=== PATIENT | male | born 1985 | race Caucasian/White ===

== ENCOUNTER → 2020-03-29 10:21 | Outpatient (BNVA) | payer OTHER, SELFPAY | PROVIDERS: Family Provider Electrodiagnostic Medicine; PCP Electrodiagnostic Medicine; Visit Provider Internal Medicine | DX: J06.9 Acute upper respiratory infection, unspecified (principal) | CPT/HCPCS: 87635 ==

== ENCOUNTER 2021-08-29 19:32 | Emergency (ER) | payer OTHER, SELFPAY ==
[2021-08-29] VITALS (26 sets, daily range): BP systolic 137–157; BP diastolic 79–98; PULSE 71–94; RESP 14–31; TEMP 36.9; O2SAT 95–100
[2021-08-29 20:41] LABS: Add Urine Microscopic? NO; Charge for UA Resulting for Rev
[2021-08-29 20:49] LABS: Bilirubin Urine Neg (Negative); Blood Urine Neg (Negative); Glucose Urine UA Norm (Normal); Ketones Urine Negative (Negative); Leukocyte Esterase Urine Negative (Negative); Nitrate Urine Negative (Negative); Protein Urine Neg (Negative); Sulfosalicylic Acid Urine Negative (Negative); Urine Appearance Clear (CLEAR); Urine Color Yellow (Yellow); Urobilinogen Urine Norm (Negative); pH Urine 8 (5-7)
--- NOTE | 2021-08-29 21:53 | CTR_ITS ---
PROCEDURE INFORMATION: Exam: CT Abdomen And Pelvis With Contrast Exam date and time: 08/29/2021 9:53 PM Age: 36 years old Clinical indication: Abdominal pain; Localized; Right lower quadrant (rlq); Patient HX: Rlq pain with nausea. ; Additional info: Eval for pathologies in the rlq TECHNIQUE: Imaging protocol: Computed tomography of the abdomen and pelvis with contrast. Radiation optimization: All CT scans at this facility use at least one of these dose optimization techniques: automated exposure control; mA and/or kV adjustment per patient size (includes targeted exams where dose is matched to clinical indication); or iterative reconstruction. Contrast material: OMNI 300; Contrast volume: 95 ml; Contrast route: INTRAVENOUS (IV); COMPARISON: No relevant prior studies available. RADIATION DOSE METRICS: Total DLP (mGy-cm): 1052.9 FINDINGS: Lungs: 5 mm left lower lobe pulmonary nodule. Liver: 2.4 cm right lobe hepatic lesion with peripheral nodular enhancement consistent with a hemangioma. Gallbladder and bile ducts: No wall thickening, pericholecystic fluid or stones. Pancreas: Normal. No ductal dilation. Spleen: Normal. No splenomegaly. Adrenal glands: Normal. No mass. Kidneys and ureters: 2 mm mildly obstructing right distal ureteral stone. Stomach and bowel: Unremarkable. No obstruction. No mucosal thickening. Appendix: No evidence of appendicitis. Intraperitoneal space: Unremarkable. No free air. No significant fluid collection. Vasculature: Unremarkable. No abdominal aortic aneurysm. Lymph nodes: Unremarkable. No enlarged lymph nodes. Urinary bladder: Unremarkable as visualized. Reproductive: Unremarkable as visualized. Bones/joints: Unremarkable. No acute fracture. Soft tissues: Unremarkable. CT/CT abdomen pelvis w con* [id number] IMPRESSION: 1. 2 mm mildly obstructing right distal ureteral stone. 2. 5 mm left lower lobe pulmonary nodule. For patients at low risk (minimal or absent history of smoking and of other known risk factors), no routine follow-up is indicated. For patients at high risk (history of smoking or of other known risk factors), consider optional CT Chest at 12 months. (Reference: Dunia) 3. 2.4 cm right lobe hepatic lesion with peripheral nodular enhancement consistent with a hemangioma. REFERENCES: Dunia Perez et al. Guidelines for Management of Incidental Pulmonary Nodules Detected on CT Images: From the Fleischner Society 2017. Radiology. 2017;284(1):228-243.
--- NOTE | 2021-08-29 21:56 | ED_ITS ---
Documented by User: Afshan Zabala MD 09/01/21 13:03 HPI - General Adult General: Chief complaint: Abdominal Pain Stated complaint: lower abd pain goes to the back Time Seen by Provider: 08/29/21 21:42 History of Present Illness: Patient is a 36-year-old male with no segment past medical history presents emergency room with complaints of right lower quadrant abdominal pain radiating to the right flank since 6:45 PM. Patient was at home resting when this all started. Since, patient has had intermittent severe right lower quadrant pain. Patient denies any nausea/vomiting, fever/chills, diarrhea, melena hematochezia. Patient has no testicular complaints including testicular pain, swelling, or trauma. Patient has no prior history of kidney stone. No prior abdominal surgeries. Patient has no other associated symptoms including chest pain, shortness breath, palpitation, lightheadedness, cough, hemoptysis, or nasal congestion Onset: 6:45pm today Duration:3 hrs Location:home Severity:moderate Associated symptoms: Deny chest pain, dyspnea, nausea, rash, palpitations or vomiting Review of Systems Const: Denies: fever(s) or chills Eyes: Denies: change in vision ENMT: Denies: mouth pain Card: Denies: chest pain or palpitations Resp: Denies: dyspnea or non-productive cough GI: Reports: abdominal pain (+RLQ and R flank abd pain); Denies: nausea, vomiting or diarrhea : Denies: dysuria Musc: Denies: extremity pain Skin/Breast: Denies: rash or new lesions Neuro: Denies: weakness in extremities Psych: Reports: other (Normal mood) Darshan/Lymph: Denies: easy bruising PFSH ED PFSH: Family History (Updated 08/29/21 @ 21:57 by Afshan Zabala MD) Denies family history of CAD (coronary artery disease) Anesthesia complication Social History (Updated 08/29/21 @ 21:56 by Afshan Zabala MD) Smoking and tobacco status: never smoked Alcohol intake: never Physical Exam Const: COMMON NORMALS: alert HENMT: COMMON NORMALS: atraumatic HEAD & SCALP: atraumatic MOUTH: moist mucous membranes not abnormal Eye: COMMON NORMALS: EOMs intact bilaterally and conjunctivae normal CONJUNCTIVA: Yes conjunctivae normal Neck/C-Spine: COMMON NORMALS: full ROM and supple Resp: COMMON NORMALS: normal respiratory effort and clear to auscultation bilaterally AUSCULTATION: clear to auscultation bilaterally Cardio: COMMON NORMALS: regular rate RATE: regular rate GI: COMMON NORMALS: Soft to palpation PALPATION: Yes Soft to palpation OTHER: +moderate RLQ focal TTP. NO guarding rebound, guarding, rigidity. +mild R CVA tenderness to percussion. Neg Lockett/Neg McBurney's point tenderness, no suprabupic tenderness to palpation. : OTHER: Normal external genitalia, Testicles non-tender b/l, no erythema. +cresmestric reflex b/l Extremity: COMMON NORMALS: full ROM Neuro: SENSORIUM/ORIENTATION: Yes alert MOTOR EXAM: No Abnormal motor stren gth present and Other motor observations present (no focal motor deficits) Psych: COMMON NORMALS: speech normal SPEECH: Yes normal speech MOOD & AFFECT: Yes euthymic mood Course Vital Signs: Vital signs: Vital Signs Temperature 98.5 F 08/30/21 00:25 Pulse Rate 65 08/30/21 00:25 Respiratory Rate 15 08/30/21 00:25 Blood Pressure 137/82 08/30/21 00:25 Pulse Oximetry 99 08/30/21 00:25 MDM - General Adult Medical Decision Making 36-year-old male w/ no PMH history presenting to ED with sudden onset of right lower quadrant dull pain with radiation to the right flank. On arrival, patient is afebrile, in moderate distress w. moderate tenderness palpation right lower quadrant with radiation to the right flank. No prior hx of kidney stones. Workup: CBC, CMP, Lipase, CT abd+pelvis Intervention: IVF, dilaudid and serial reassessment CT abdomen pelvis showed 2 mm right obstructive distal ureteral stone. Patient received 2 L of fluid, Toradol, dilaudid and fentanyl with improvement of symptoms. Noted to have white count of 18.8. However UA is negative for any signs of UTI. No suspicion for infected kidney stone. I have given patient follow up with our social work case manager to be seen by our outpatient Urology for kidney stone. Patient aware of a call from our social work case manager to schedule for appointment(s) and verbalizes understanding of the importance of following up. Rx tyleonl PRN pain and zofran PRN nausea/vomiting Disposition: Discharge. Patient counseled regarding diagnostic impression, treatment plan. Patient given ED strict return precautions to return for continuation, worsening, or development of new symptoms. Instructed to f/u w/ Dr. Sequeira regarding symptoms today. Patient verbalized understanding. above. Pt remained stable. outpt fu. Lab Data : 08/29/21 21:50 08/29/21 21:50 Radiology Impressions Abdomen/Pelvis CT 08/29/21 21:53 IMPRESSION: 1. 2 mm mildly obstructing right distal ureteral stone. 2. 5 mm left lower lobe pulmonary nodule. For patients at low risk (minimal or absent history of smoking and of other known risk factors), no routine follow-up is indicated. For patients at high risk (history of smoking or of other known risk factors), consider optional CT Chest at 12 months. (Reference: Dunia) 3. 2.4 cm right lobe hepatic lesion with peripheral nodular enhancement consistent with a hemangioma. REFERENCES: Dunia Perez, et al. Guidelines for Management of Incidental Pulmonary Nodules Detected on CT Images: From the Fleischner Society 2017. Radiology. 2017;284(1):228-243. Laboratory Results WBC 18.8 10^3/uL (4.0-10.0) H 08/29/21 21:50 RBC 4.81 10^6/uL (4.1-5.3) 08/29/21 21:50 Hgb 14.7 g/dL (11.7-16.6) 08/29/21 21:50 Hct 41.9 % (42.0-52.0) L 08/29/21 21:50 MCV 87.1 fl (80-94) 08/29/21 21:50 MCH 30.6 pg (28.0-34.0) 08/29/21 21:50 MCHC 35.1 g/dL (30.0-36.0) 08/29/21 21:50 RDW 12.0 % (12.1-15.1) L 08/29/21 21:50 Plt Count 315 10^3/cmm (130-400) 08/29/21 21:50 MPV 9.5 fL (7.4-10.4) 08/29/21 21:50 Neut % (Auto) 85.3 % 08/29/21 21:50 Lymph % (Auto) 9.0 % 08/29/21 21:50 Cole % (Auto) 4.7 % 08/29/21 21:50 Eos % (Auto) 0.3 % 08/29/21 21:50 Baso % (Auto) 0.3 % 08/29/21 21:50 Neut # (Auto) 15.99 10^3/uL (1.8-7.7) H 08/29/21 21:50 Lymph # (Auto) 1.7 10^3/uL (0.8-4.8) 08/29/21 21:50 Cole # (Auto) 0.9 10^3/uL (0.2-0.9) 08/29/21 21:50 Eos # (Auto) 0.1 10^3/uL (0.0-0.8) 08/29/21 21:50 Baso # (Auto) 0.1 10^3/uL (0.0-0.1) 08/29/21 21:50 Nucleated RBC % (auto) 0 % 08/29/21 21:50 Nucleated RBCs # 0.0 /100WBC 08/29/21 21:50 Sodium 138 mmol/L (136-145) 08/29/21 21:50 Potassium 4.4 mmol/L (3.5-5.1) 08/29/21 21:50 Chloride 101 mmol/L (98-107) 08/29/21 21:50 Carbon Dioxide 24 mmol/L (22-29) 08/29/21 21:50 Anion Gap 17.4 (5-19) 08/29/21 21:50 BUN 16 mg/dL (6-20) 08/29/21 21:50 Creatinine 1.1 mg/dL (0.7-1.2) 08/29/21 21:50 GFR Calculation 74.9 mL/min (90-130) L 08/29/21 21:50 Glucose 143 mg/dL (65-115) H 08/29/21 21:50 Calculated Osmolality 290 mOsm/kg (285-295) 08/29/21 21:50 Calcium 9.1 mg/dL (8.5-10.5) 08/29/21 21:50 Total Bilirubin 0.8 mg/dL (0.15-1.2) 08/29/21 21:50 AST 29 U/L (0-40) 08/29/21 21:50 ALT 49 U/L (0-41) H 08/29/21 21:50 Alkaline Phosphatase 55 IU/L (40-130) 08/29/21 21:50 Total Protein 7.6 g/dL (6.6-8.7) 08/29/21 21:50 Albumin 4.7 g/dL (3.5-5.2) 08/29/21 21:50 Globulin 2.9 g/dL (1.3-4.6) 08/29/21 21:50 Lipase 105 U/L (13-60) H 08/29/21 21:50 Urine Color Yellow (Yellow) 08/29/21 20:16 Urine Appearance Clear (CLEAR) 08/29/21 20:16 Urine pH 8 (5-7) H 08/29/21 20:16 Ur Specific [place] 1.010 (1.005-1.030) 08/29/21 20:16 Urine Protein Neg (Negative) 08/29/21 20:16 Urine Glucose (UA) Norm (Normal) 08/29/21 20:16 Urine Ketones Negative (Negative) 08/29/21 20:16 Urine Blood Neg (Negative) 08/29/21 20:16 Urine Nitrate Negative (Negative) 08/29/21 20:16 Urine Bilirubin Neg (Negative) 08/29/21 20:16 Prot Sulfosalicylic Acd Negative (Negative) 08/29/21 20:16 Urine Urobilinogen Norm mg/dL (Negative) 08/29/21 20:16 Ur Leukocyte Esterase Negative (Negative) 08/29/21 20:16 Imaging Data Other Imaging: Radiologist's impression: [address] [address] [address] Scan Report Signed Patient: Jesus Alberto Pierre Unit #: [id number] : 1985 Age/Sex: 36 / M ADM Date: 08/29/21 Loc: ER Room/Bed: Attending Dr: Ordering Provider/Ordering MD: Afshan Zabala MD Date of Service: 08/29/21 Procedure(s): CT abdomen pelvis w con* [id number] Accession Number(s): [id number] Report Number: [id number] PROCEDURE INFORMATION: Exam: CT Abdomen And Pelvis With Contrast Exam date and time: 08/29/2021 9:53 PM Age: 36 years old Clinical indication: Abdominal pain; Localized; Right lower quadrant (rlq); Patient HX: Rlq pain with nausea. ; Additional info: Eval for pathologies in the rlq TECHNIQUE: Imaging protocol: Computed tomography of the abdomen and pelvis with contrast. Radiation optimization: All CT scans at this facility use at least one of these dose optimization techniques: automated exposure control; mA and/or kV adjustment per patient size (includes targeted exams where dose is matched to clinical indication); or iterative reconstruction. Contrast material: OMNI 300; Contrast volume: 95 ml; Contrast route: INTRAVENOUS (IV);? COMPARISON: No relevant prior studies available. RADIATION DOSE METRICS: Total DLP (mGy-cm): 1052.9 FINDINGS: Lungs: 5 mm left lower lobe pulmonary nodule. Liver: 2.4 cm right lobe hepatic lesion with peripheral nodular enhancement consistent with a hemangioma. Gallbladder and bile ducts: No wall thickening, pericholecystic fluid or stones. Pancreas: Normal. No ductal dilation. Spleen: Normal. No splenomegaly. Adrenal glands: Normal. No mass. Kidneys and ureters: 2 mm mildly obstructing right distal ureteral stone. Stomach and bowel: Unremarkable. No obstruction. No mucosal thickening. Appendix: No evidence of appendicitis. Intraperitoneal space: Unremarkable. No free air. No significant fluid collection. Vasculature: Unremarkable. No abdominal aortic aneurysm. Lymph nodes: Unremarkable. No enlarged lymph nodes. Urinary bladder: Unremarkable as visualized. Reproductive: Unremarkable as visualized. Bones/joints: Unremarkable. No acute fracture. Soft tissues: Unremarkable. CT/CT abdomen pelvis w con* [id number] IMPRESSION: 1. 2 mm mildly obstructing right distal ureteral stone. 2. 5 mm left lower lobe pulmonary nodule. For patients at low risk (minimal or absent history of smoking and of other known risk factors), no routine follow-up is indicated. For patients at high risk (history of smoking or of other known risk factors), consider optional CT Chest at 12 months. (Reference: Dunia) 3. 2.4 cm right lobe hepatic lesion with peripheral nodular enhancement consistent with a hemangioma. ? REFERENCES: Dunia Perez et al. Guidelines for Management of Incidental Pulmonary Nodules Detected on CT Images: From the Fleischner Society 2017. Radiology. 2017;284(1):228-243. ? Dictated By: Jesse Driscoll Signed By: Jesse Driscoll Signed Date/Time: 08/29/212237 DD/ 52 Discharge Plan Discharge Patient Disposition: Home Clinical Impression: Abdominal pain, Renal colic, Ureterolithiasis Condition: Stable Prescriptions: New Zofran 4 mg tablet 4 mg PO TID PRN (Reason: nausea and vomiting) 4 Days Qty: 12 0RF Percocet 7.5-325 mg tablet 1 tab PO Q6H PRN (Reason: pain) Qty: 10 0RF Discharge Orders: Discharge ED (Routine); Ordered 08/30/21 Ordered By: Sky Crowe Referrals: Marek Sequeira MD [Physician] - 1-3 days Alexis Chauhan DO [Primary Care Provider] - Discharge Diet: Advance as tolerated Discharge Activity: Increase activity as tolerated Patient Instructions: Abdominal Pain (ED), Ureteral Stones (ED) Activity Restrictions/Additional Instructions: Please follow-up with Dr. 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 Documented by User: Sky Crowe DO 08/30/21 02:02 HPI - General Adult General: Chief complaint: Abdominal Pain Stated complaint: lower abd pain goes to the back Time Seen by Provider: 08/29/21 21:42 PFSH ED PFSH: Family History (Updated 08/29/21 @ 21:57 by Afshan Zabala MD) Denies family history of CAD (coronary artery disease) Anesthesia complication Social History (Updated 08/29/21 @ 21:56 by Afshan Zabala MD) Smoking and tobacco status: never smoked Alcohol intake: never Course Vital Signs: Vital signs: Vital Signs Temperature 98.5 F 08/30/21 00:25 Pulse Rate 65 08/30/21 00:25 Respiratory Rate 15 08/30/21 00:25 Blood Pressure 137/82 08/30/21 00:25 Pulse Oximetry 99 08/30/21 00:25 MDM - General Adult Medical Decision Making 36-year-old male w/ no PMH history presenting to ED with sudden onset of right lower quadrant dull pain with radiation to the right flank. Arrival, patient is afebrile, in moderate distress patient has moderate tenderness palpation right lower quadrant with radiation to the right flank. No prior hx of kidney stones. Workup: CBC, CMP, Lipase, CT abd+pelvis Intervention: IVF, dilaudid and serial reassessment CT abdomen pelvis showed 2 mm right obstructive distal ureteral stone. Patient received 2 L of fluid, Toradol, dilaudid and fentanyl with improvement of symptoms. Noted to have white count of 18.8. However UA is negative for any signs of UTI. No suspicion for infected kidney stone. I have given patient follow up with our social work case manager to be seen by our outpatient Urology for kidney stone. Patient aware of a call from our social work case manager to schedule for appointment(s) and verbalizes understanding of the importance of following up. Rx tyleonl PRN pain and zofran PRN nausea/vomiting Disposition: Discharge. Patient counseled regarding diagnostic impression, treatment plan. Patient given ED strict return precautions to return for continuation, worsening, or development of new symptoms. Instructed to f/u w/ Dr. Sequeira regarding symptoms today. Patient verbalized understanding. above. Pt remained stable. outpt fu. Lab Data : 08/29/21 21:50 08/29/21 21:50 Radiology Impressions Abdomen/Pelvis CT 08/29/21 21:53 IMPRESSION: 1. 2 mm mildly obstructing right distal ureteral stone. 2. 5 mm left lower lobe pulmonary nodule. For patients at low risk (minimal or absent history of smoking and of other known risk factors), no routine follow-up is indicated. For patients at high risk (history of smoking or of other known risk factors), consider optional CT Chest at 12 months. (Reference: Dunia) 3. 2.4 cm right lobe hepatic lesion with peripheral nodular enhancement consistent with a hemangioma. REFERENCES: Dunia Perez, et al. Guidelines for Management of Incidental Pulmonary Nodules Detected on CT Images: From the Fleischner Society 2017. Radiology. 2017;284(1):228-243. Laboratory Results WBC 18.8 10^3/uL (4.0-10.0) H 08/29/21 21:50 RBC 4.81 10^6/uL (4.1-5.3) 08/29/21 21:50 Hgb 14.7 g/dL (11.7-16.6) 08/29/21 21:50 Hct 41.9 % (42.0-52.0) L 08/29/21 21:50 MCV 87.1 fl (80-94) 08/29/21 21:50 MCH 30.6 pg (28.0-34.0) 08/29/21 21:50 MCHC 35.1 g/dL (30.0-36.0) 08/29/21 21:50 RDW 12.0 % (12.1-15.1) L 08/29/21 21:50 Plt Count 315 10^3/cmm (130-400) 08/29/21 21:50 MPV 9.5 fL (7.4-10.4) 08/29/21 21:50 Neut % (Auto) 85.3 % 08/29/21 21:50 Lymph % (Auto) 9.0 % 08/29/21 21:50 Cole % (Auto) 4.7 % 08/29/21 21:50 Eos % (Auto) 0.3 % 08/29/21 21:50 Baso % (Auto) 0.3 % 08/29/21 21:50 Neut # (Auto) 15.99 10^3/uL (1.8-7.7) H 08/29/21 21:50 Lymph # (Auto) 1.7 10^3/uL (0.8-4.8) 08/29/21 21:50 Cole # (Auto) 0.9 10^3/uL (0.2-0.9) 08/29/21 21:50 Eos # (Auto) 0.1 10^3/uL (0.0-0.8) 08/29/21 21:50 Baso # (Auto) 0.1 10^3/uL (0.0-0.1) 08/29/21 21:50 Nucleated RBC % (auto) 0 % 08/29/21 21:50 Nucleated RBCs # 0.0 /100WBC 08/29/21 21:50 Sodium 138 mmol/L (136-145) 08/29/21 21:50 Potassium 4.4 mmol/L (3.5-5.1) 08/29/21 21:50 Chloride 101 mmol/L (98-107) 08/29/21 21:50 Carbon Dioxide 24 mmol/L (22-29) 08/29/21 21:50 Anion Gap 17.4 (5-19) 08/29/21 21:50 BUN 16 mg/dL (6-20) 08/29/21 21:50 Creatinine 1.1 mg/dL (0.7-1.2) 08/29/21 21:50 GFR Calculation 74.9 mL/min (90-130) L 08/29/21 21:50 Glucose 143 mg/dL (65-115) H 08/29/21 21:50 Calculated Osmolality 290 mOsm/kg (285-295) 08/29/21 21:50 Calcium 9.1 mg/dL (8.5-10.5) 08/29/21 21:50 Total Bilirubin 0.8 mg/dL (0.15-1.2) 08/29/21 21:50 AST 29 U/L (0-40) 08/29/21 21:50 ALT 49 U/L (0-41) H 08/29/21 21:50 Alkaline Phosphatase 55 IU/L (40-130) 08/29/21 21:50 Total Protein 7.6 g/dL (6.6-8.7) 08/29/21 21:50 Albumin 4.7 g/dL (3.5-5.2) 08/29/21 21:50 Globulin 2.9 g/dL (1.3-4.6) 08/29/21 21:50 Lipase 105 U/L (13-60) H 08/29/21 21:50 Urine Color Yellow (Yellow) 08/29/21 20:16 Urine Appearance Clear (CLEAR) 08/29/21 20:16 Urine pH 8 (5-7) H 08/29/21 20:16 Ur Specific [place] 1.010 (1.005-1.030) 08/29/21 20:16 Urine Protein Neg (Negative) 08/29/21 20:16 Urine Glucose (UA) Norm (Normal) 08/29/21 20:16 Urine Ketones Negative (Negative) 08/29/21 20:16 Urine Blood Neg (Negative) 08/29/21 20:16 Urine Nitrate Negative (Negative) 08/29/21 20:16 Urine Bilirubin Neg (Negative) 08/29/21 20:16 Prot Sulfosalicylic Acd Negative (Negative) 08/29/21 20:16 Urine Urobilinogen Norm mg/dL (Negative) 08/29/21 20:16 Ur Leukocyte Esterase Negative (Negative) 08/29/21 20:16 Discharge Plan Discharge Patient Disposition: Home Clinical Impression: Abdominal pain, Renal colic, Ureterolithiasis Condition: Stable Prescriptions: New Zofran 4 mg tablet 4 mg PO TID PRN (Reason: nausea and vomiting) 4 Days Qty: 12 0RF Percocet 7.5-325 mg tablet 1 tab PO Q6H PRN (Reason: pain) Qty: 10 0RF Discharge Orders: Discharge ED (Routine); Ordered 08/30/21 Ordered By: Sky Crowe Referrals: Marek Sequeira MD [Physician] - 1-3 days Alexis Chauhan DO [Primary Care Provider] - Discharge Diet: Advance as tolerated Discharge Activity: Increase activity as tolerated Patient Instructions: Abdominal Pain (ED), Ureteral Stones (ED) Activity Restrictions/Additional Instructions: Please follow-up with Dr. 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
--- NOTE | 2021-08-29 21:57 | PC.NURSE ---
pt stating he is having flank pain on the right side. states has never experienced anything like this before. denies any problems urinating.
[2021-08-29] MEDS: HYDROmorphone 1 mg/mL INJ 1 mL 0.5 MG IVP (22:00)
[2021-08-29] MEDS: sodium chloride 0.9% 1,000 ML 999 ML IV ×2 (22:06→23:00)
[2021-08-29 22:07] LABS: Basophils # 0.1 10^3/uL (0.0-0.1); Basophils % 0.3 %; Eosinophils # 0.1 10^3/uL (0.0-0.8); Eosinophils % 0.3 %; Hematocrit 41.9 % (42.0-52.0); Hemoglobin 14.7 g/dL (11.7-16.6); Lymphocytes # 1.7 10^3/uL (0.8-4.8); Mean Corpuscular HGB Conc 35.1 g/dL (30.0-36.0); Mean Corpuscular Hemoglobin 30.6 pg (28.0-34.0); Mean Corpuscular Volume 87.1 fl (80-94); Mean Platelet Volume 9.5 fL (7.4-10.4); Monocytes # 0.9 10^3/uL (0.2-0.9); Monocytes % 4.7 %; Neutrophils # 15.99 10^3/uL (1.8-7.7); Neutrophils % 85.3 %; Nucleated Red Blood Cells % 0 %; Platelet Count 315 10^3/cmm (130-400); Red Blood Count 4.81 10^6/uL (4.1-5.3); White Blood Count 18.8 10^3/uL (4.0-10.0)
[2021-08-29] MEDS: iohexol 300 mg/mL 100 mL Btl IV (22:17)
[2021-08-29 22:24] LABS: Alanine Aminotransferase 49 U/L (0-41); Albumin Level 4.7 g/dL (3.5-5.2); Alkaline Phosphatase 55 IU/L (40-130); Anion Gap 17.4 (5-19); Aspartate Amino Transferase 29 U/L (0-40); Blood Urea Nitrogen 16 mg/dL (6-20); Calcium 9.1 mg/dL (8.5-10.5); Carbon Dioxide 24 mmol/L (22-29); Chloride 101 mmol/L (98-107); Globulin 2.9 g/dL (1.3-4.6); Glomerular Filtration Rate 74.9 mL/min (90-130); Glucose 143 mg/dL (65-115); Lipase 105 U/L (13-60); Osmolality Calculated 290 mOsm/kg (285-295); Potassium 4.4 mmol/L (3.5-5.1); Sodium 138 mmol/L (136-145); Total Bilirubin 0.8 mg/dL (0.15-1.2); Total Protein 7.6 g/dL (6.6-8.7)
[2021-08-29] MEDS: fentaNYL 50 mcg/mL INJ 2mL IVP (22:45)
[2021-08-29] MEDS: ketorolac 30 mg/mL INJ IVP (22:46)
[2021-08-30] MEDS: oxyCODONE-APAP 5-325 mg Tablet 1 TAB PO (00:24)
[2021-08-30 00:25] VITALS: BP 137/82; PULSE 65; RESP 15; TEMP 36.9; O2SAT 99
--- NOTE | 2021-09-01 11:20 | DCPLANNER ---
Addendum entered by Margi Avery 09/05/21 13:32: Patient had a follow up appointment scheduled for 09.05.[address] Sequeira - patient did attend appointment. Original Note: sales engagement manager had message to schedule a follow up appointment for patient with Dr. Sequeira. sales engagement manager emailed patients information to Myron Olivo and Lennie at the office of Dr. Sequeira. Patients information will be printed and reviewed. Clinic will call patient with appointment information.
== END 2021-08-30 00:27 | disposition home or self-care (01) ==
PROVIDERS: Nurse Practitioner Family; Emergency Provider Emergency Medicine; PCP Electrodiagnostic Medicine
DX: N20.1 Calculus of ureter (principal); N23 Unspecified renal colic
CPT/HCPCS: 74177; 80053; 81003; 83690; 85025; 96361; 96374; 96375; 99284; J1170; J1885; J3010; J7030; Q9967

== ENCOUNTER 2021-09-02 08:49 | Emergency (ER) | payer OTHER, SELFPAY ==
[2021-09-02 09:29] VITALS: BP 149/89; PULSE 81; RESP 16; TEMP 36.9; O2SAT 99; BMI 23.1
[2021-09-02 10:42] VITALS: BP 155/107; PULSE 79; RESP 16; O2SAT 99
--- NOTE | 2021-09-02 10:43 | ED_ITS ---
HPI - Abdominal Pain General: Chief Complaint: Abdominal Pain Stated Complaint: Hasn't passed a kidneystone, no bowels for 5 days Time Seen by Provider: 09/02/21 10:32 Source: patient and family () Mode of arrival: ambulatory Limitations: no limitations History of Present Illness: Patient is a 36-year-old male who presents to ED today along with his for complaints of no bowel movement over the past 5 days. Patient was seen here recently and diagnosed with a 2 mm right distal ureter stone. Patient states he has been urinating normally. The pain to the right side of his back and lower abdomen has improved. He has been taking pain medications as directed. He states he was also later placed on flomax and ciprofloxacin as he apparently ran a low-grade fever. He has follow-up with Dr. Sequeira's office tomorrow. Patient states today he is having generalized abdominal discomfort that he states is secondary to constipation. He has tried treating with MiraLAX and magnesium citrate without much relief. No vomiting. He is passing flatulence. MD elicited complaint: abdominal pain Onset (ago): day(s) Pain Consistency: constant Location: Diffuse Severity: moderate Pain scale (0-10): 6 Radiation: none Migration to: no migration Exacerbating factors: nothing Relieving factors: nothing Associated Symptoms: Reports constipation; Denies chills, diarrhea, dysuria, fever(s), heartburn, hematochezia, hematuria, melena, nausea and vomiting Review of Systems Const: Denies: fever(s), chills, body aches, fatigue or malaise Card: Denies: chest pain Resp: Denies: dyspnea GI: Reports: abdominal pain and constipation; Denies: nausea, vomiting, heartburn, diarrhea, hematochezia or melena : Denies: flank pain, difficulty urinating, dysuria, urinary frequency, urinary urgency, urinary hesitancy, urinary incontinence or hematuria Musc: Denies: neck pain, back pain, extremity pain or joint pain Skin/Breast: Denies: rash Neuro: Denies: headache(s), numbness in extremities, weakness in extremities or sensory changes PFS ED PFSH: Family History Denies family history of CAD (coronary artery disease) Anesthesia complication Social History Smoking and tobacco status: never smoked Alcohol intake: never Physical Exam Const: COMMON NORMALS: no acute distress, average body habitus, patient oriented x3, no limitations, healthy appearing, alert and well nourished GENERAL APPEARANCE: cooperative Resp: COMMON NORMALS: normal respiratory effort Cardio: COMMON NORMALS: regular rate and regular rhythm RATE: regular rate RHYTHM: regular rhythm GI: COMMON NORMALS: Normal to inspection, nondistended, normoactive bowel sounds present, Soft to palpation, No hepatosplenomegaly present and no masses INSPECTION: Yes normal to inspection PALPATION: Yes Soft to palpation, Yes Tenderness to palpation present (GI) (mild diffusely-non surgical abdomen) and Yes No hepatosplenomegaly present : COMMON NORMALS: Yes no CVA tenderness BLADDER/KIDNEY EXAM: Yes no CVA tenderness Back/Pelvis: COMMON NORMALS: no CVA tenderness Neuro: COMMON NORMALS: patient oriented x3 SENSORIUM/ORIENTATION: Yes alert Skin: COMMON NORMALS: no rashes or lesions noted GENERAL SKIN EXAM: no rashes or lesions noted Course Vital Signs: Vital signs: Vital Signs Temperature 98.4 F 09/02/21 09:29 Pulse Rate 79 09/02/21 10:42 Respiratory Rate 16 09/02/21 10:42 Blood Pressure 155/107 09/02/21 10:42 Pulse Oximetry 99 09/02/21 10:42 MDM - Abdominal Pain Medical Decision Making Patient here with concerns of constipation most likely secondary to opiate use over the last several days secondary to a right distal ureter stone. On exam patient has generalized discomfort but exam is nonsurgical. XR of his abdomen shows moderate colonic stool with lots of air to transverse and descending colon. No obstruction. Small 2mm calculus seems to still be present. Patient has follow up with Dr. Sequeira's office tomorrow. At this time patient will be given mixture of milk of mag, lactulose, and mineral oil to take at home with instructions for miralax/colace BID and can even do some mag citrate for the next few days to get bowels evacuated. Taper on pain meds if possible as well. Patient/ agreeable to this plan. Return to ED precautions given. Labs overall look okay. Creatinine was mildly elevated at 1.5 and he did have 2+ ketones in urine so was given a liter of fluids prior to DC. Lab Data : 09/02/21 10:45 09/02/21 10:45 Labs/Radiology: Radiology Impressions Abdomen X-Ray 09/02/21 10:43 IMPRESSION: Right obstructive uropathy. Laboratory Results WBC 14.4 10^3/uL (4.0-10.0) H 09/02/21 10:45 RBC 4.64 10^6/uL (4.1-5.3) 09/02/21 10:45 Hgb 13.6 g/dL (11.7-16.6) 09/02/21 10:45 Hct 40.1 % (42.0-52.0) L 09/02/21 10:45 MCV 86.4 fl (80-94) 09/02/21 10:45 MCH 29.3 pg (28.0-34.0) 09/02/21 10:45 MCHC 33.9 g/dL (30.0-36.0) 09/02/21 10:45 RDW 11.8 % (12.1-15.1) L 09/02/21 10:45 Plt Count 277 10^3/cmm (130-400) 09/02/21 10:45 MPV 9.7 fL (7.4-10.4) 09/02/21 10:45 Neut % (Auto) 84.7 % 09/02/21 10:45 Lymph % (Auto) 6.1 % 09/02/21 10:45 [place] % (Auto) 8.2 % 09/02/21 10:45 Eos % (Auto) 0.2 % 09/02/21 10:45 Baso % (Auto) 0.3 % 09/02/21 10:45 Neut # (Auto) 12.23 10^3/uL (1.8-7.7) H 09/02/21 10:45 Lymph # (Auto) 0.9 10^3/uL (0.8-4.8) 09/02/21 10:45 [place] # (Auto) 1.2 10^3/uL (0.2-0.9) H 09/02/21 10:45 Eos # (Auto) 0.0 10^3/uL (0.0-0.8) 09/02/21 10:45 Baso # (Auto) 0.0 10^3/uL (0.0-0.1) 09/02/21 10:45 Nucleated RBC % (auto) 0 % 09/02/21 10:45 Nucleated RBCs # 0.0 /100WBC 09/02/21 10:45 Sodium 135 mmol/L (136-145) L 09/02/21 10:45 Potassium 4.0 mmol/L (3.5-5.1) 09/02/21 10:45 Chloride 99 mmol/L (98-107) 09/02/21 10:45 Carbon Dioxide 22 mmol/L (22-29) 09/02/21 10:45 Anion Gap 18.0 (5-19) 09/02/21 10:45 BUN 13 mg/dL (6-20) 09/02/21 10:45 Creatinine 1.5 mg/dL (0.7-1.2) H 09/02/21 10:45 GFR Calculation 52.4 mL/min (90-130) L 09/02/21 10:45 Glucose 91 mg/dL (65-115) 09/02/21 10:45 Calculated Osmolality 280 mOsm/kg (285-295) L 09/02/21 10:45 Calcium 9.8 mg/dL (8.5-10.5) 09/02/21 10:45 Total Bilirubin 1.1 mg/dL (0.15-1.2) 09/02/21 10:45 AST 20 U/L (0-40) 09/02/21 10:45 ALT 28 U/L (0-41) 09/02/21 10:45 Alkaline Phosphatase 55 IU/L (40-130) 09/02/21 10:45 Total Protein 7.8 g/dL (6.6-8.7) 09/02/21 10:45 Albumin 4.2 g/dL (3.5-5.2) 09/02/21 10:45 Globulin 3.6 g/dL (1.3-4.6) 09/02/21 10:45 Urine Color Yellow (Yellow) 09/02/21 10:55 Urine Appearance Clear (CLEAR) 09/02/21 10:55 Urine pH 7 (5-7) 09/02/21 10:55 Ur Specific [place] 1.010 (1.005-1.030) 09/02/21 10:55 Urine Protein Neg (Negative) 09/02/21 10:55 Urine Glucose (UA) Norm (Normal) 09/02/21 10:55 Urine Ketones 2+ (Negative) H 09/02/21 10:55 Urine Blood Neg (Negative) 09/02/21 10:55 Urine Nitrate Negative (Negative) 09/02/21 10:55 Urine Bilirubin Neg (Negative) 09/02/21 10:55 Urine Urobilinogen Neg mg/dL (Negative) 09/02/21 10:55 Ur Leukocyte Esterase Negative (Negative) 09/02/21 10:55 Discharge Plan Discharge Patient Disposition: Home Clinical Impression: Constipation due to pain medication, Right distal ureteral calculus Condition: Stable Prescriptions: No Action Percocet 7.5-325 mg tablet 1 tab PO Q6H PRN (Reason: pain) Qty: 10 0RF Discharge Orders: Discharge ED (Routine); Ordered 09/02/21 Ordered By: Judie Anand Referrals: Alexis Chauhan, [Primary Care Provider] - Activity Restrictions/Additional Instructions: As we discussed patient has been given a mixture to drink when he gets home to help alleviate his constipation. He needs to begin taking a capful of MiraLAX twice daily and he may also take this with Colace. He can also do a dose of magnesium citrate in the afternoon for the next 1-3 days. Increase fruits/vegetables/fiber take. Taper down on pain medication use if possible. Follow up with Dr. Sequeira's office tomorrow for further evaluation of the ureter stone. Coding Level of Care Code ED Pediatric Physician for Marija Fwd Exam Detailed
--- NOTE | 2021-09-02 10:43 | XR_ITS ---
WS: [id number] XR abdomen min 2V [id number] REASON FOR EXAM: pain/constipation FINDINGS: Moderate stool in the colon. Air-filled transverse and left colons. Small obstructing distal right ur eteral calculus as noted on the CT scan of 08/29/2021. Faint retained contrast in the mildly dilated r ight ureter. No small bowel distention. No free air or retroperitoneal air. XR/XR abdomen min 2V [id number] IMPRESSION: Right obstructive uropathy.
[2021-09-02 10:59] LABS: Add Urine Microscopic? NO; Charge for UA Resulting for Rev
[2021-09-02 11:11] LABS: Basophils % 0.3 %; Eosinophils % 0.2 %; Hematocrit 40.1 % (42.0-52.0); Hemoglobin 13.6 g/dL (11.7-16.6); Lymphocytes # 0.9 10^3/uL (0.8-4.8); Lymphocytes % 6.1 %; Mean Corpuscular HGB Conc 33.9 g/dL (30.0-36.0); Mean Corpuscular Hemoglobin 29.3 pg (28.0-34.0); Mean Corpuscular Volume 86.4 fl (80-94); Mean Platelet Volume 9.7 fL (7.4-10.4); Monocytes # 1.2 10^3/uL (0.2-0.9); Monocytes % 8.2 %; Neutrophils # 12.23 10^3/uL (1.8-7.7); Neutrophils % 84.7 %; Nucleated Red Blood Cells % 0 %; Platelet Count 277 10^3/cmm (130-400); Red Blood Count 4.64 10^6/uL (4.1-5.3); Red Cell Distribution Width 11.8 % (12.1-15.1); White Blood Count 14.4 10^3/uL (4.0-10.0)
[2021-09-02 11:22] LABS: Bilirubin Urine Neg (Negative); Blood Urine Neg (Negative); Glucose Urine UA Norm (Normal); Ketones Urine 2+ (Negative); Leukocyte Esterase Urine Negative (Negative); Nitrate Urine Negative (Negative); Protein Urine Neg (Negative); Urine Appearance Clear (CLEAR); Urine Color Yellow (Yellow); Urobilinogen Urine Neg (Negative); pH Urine 7 (5-7)
[2021-09-02 11:34] LABS: Alanine Aminotransferase 28 U/L (0-41); Albumin Level 4.2 g/dL (3.5-5.2); Alkaline Phosphatase 55 IU/L (40-130); Aspartate Amino Transferase 20 U/L (0-40); Blood Urea Nitrogen 13 mg/dL (6-20); Calcium 9.8 mg/dL (8.5-10.5); Carbon Dioxide 22 mmol/L (22-29); Chloride 99 mmol/L (98-107); Globulin 3.6 g/dL (1.3-4.6); Glomerular Filtration Rate 52.4 mL/min (90-130); Glucose 91 mg/dL (65-115); Osmolality Calculated 280 mOsm/kg (285-295); Sodium 135 mmol/L (136-145); Total Bilirubin 1.1 mg/dL (0.15-1.2); Total Protein 7.8 g/dL (6.6-8.7)
[2021-09-02] MEDS: sodium chloride 0.9% 1,000 ML 999 ML IV (11:58)
[2021-09-02] MEDS: mineral oil 30 mL UDC PO (12:16)
[2021-09-02] MEDS: lactulose oral liq 20 gm/30 mL UDC 30 GM PO (12:16)
[2021-09-02] MEDS: magnesium hydroxide 30 mL UDC PO (12:16)
--- NOTE | 2021-09-02 12:17 | PC.NURSE ---
Pt states he wants to wait to take Mineral oil, lactulose, and milk of magnesia home with him. Pt states doctor gave them the ok to wait to take at home.
[2021-09-02 12:57] VITALS: BP 148/98; PULSE 98; RESP 20; O2SAT 98
== END 2021-09-02 12:59 | disposition home or self-care (01) ==
PROVIDERS: Emergency Provider Physician Assistant; PCP Electrodiagnostic Medicine
DX: K59.03 Drug induced constipation (principal); N20.1 Calculus of ureter
CPT/HCPCS: 74019; 80053; 81003; 85025; 96360; 99284; J7030

== ENCOUNTER 2021-09-03 08:58 | Outpatient (CLI) | payer OTHER, SELFPAY ==
--- NOTE | 2021-09-03 09:05 | XR_ITS ---
WS: [id number] XR KUB [id number] REASON FOR EXAM: STONES FINDINGS: Compared to the examination of the previous day there is been significant resolution of the gaseous d istention of the colon. There continues to be contrast in the distal left ureter proximal to a small obstructing calculus in the distal right ureter unchanged in position. XR/XR KUB [id number] IMPRESSION: Right obstructive uropathy secondary to small distal right ureteral calculus wh ich has not changed position compared to prior day
== END 2021-09-03 08:59 | disposition home or self-care (01) ==
PROVIDERS: PCP Electrodiagnostic Medicine; Visit Provider Nurse Practitioner Family
DX: N20.1 Calculus of ureter (principal)
CPT/HCPCS: 74018; 81003

== ENCOUNTER → 2021-09-05 11:12 | Outpatient (BNVA) | payer OTHER, SELFPAY | PROVIDERS: PCP Electrodiagnostic Medicine; Visit Provider Urology | DX: N23 Unspecified renal colic (principal); N20.1 Calculus of ureter; Z20.822 Contact with and (suspected) exposure to COVID-19 | CPT/HCPCS: 81003; 87635 ==

== ENCOUNTER 2021-09-08 07:17 | Day surgery (SDC) | payer OTHER, SELFPAY ==
[2021-09-05 13:55] VITALS: BMI 23.3
[2021-09-08] VITALS (8 sets, daily range): BP systolic 106–153; BP diastolic 52–114; PULSE 69–82; RESP 14–18; TEMP 36.2–36.8; O2SAT 97–100
[2021-09-08] MEDS: sodium chloride 0.9% 1,000 ML 30 ML IV (08:00)
--- NOTE | 2021-09-08 08:07 | P.HPUD_ITS ---
Surgery/Procedure H&P Update DATE OF PROCEDURE: September 08, 2021 DATE H&P PERFORMED: 09/05/21 H&P UPDATE INFORMATION: I have reviewed H&P completed within last 30 days, I have examined patient prior to procedure, No changes to prior documentation and H&P is in [facility] EMR on date indicated CHANGES TO PREVIOUS DOCUMENTATION: Jesus Alberto continues to be symptomatic from the right distal ureteral stone. Has been diligent about straining his urine and has not passed it. Still requiring [id number] narcotics for pain relief. No symptoms of infection. Reviewed the findings again. was present today. Proceed as planned. Reviewed the possibility of a distal ureteral stricture requiring more extensive dilation possible multiple procedures for access first followed by definitive treatment of the stone later. Also reviewed the possibi lity of percutaneous nephrostomy requirement if he is inaccessible from a retrograde approach PREOP DIAGNOSIS: Refractory RIGHT ureteral calculus PRIMARY INDICATION FOR PROCEDURE: Refractory right distal ureteral stone with ongoing symptoms. Failed reasonable conservative management PLANNED PROCEDURE: Operation Date: 09/08/21 08:45 Proposed Procedures p Cystoscopy 04269/40993-46/N20.1(Not Applicable) - Marek Sequeira MD s Retrograde Pyelogram(Right) - MD aaliyah Kay Ureteroscopy(Not Applicable) - Marek Sequeira MD s Laser Lithotripsy(Right) - Marek Sequeira MD s Ureteral Stent Placement(Right) - Marek Sequeira MD Related Problem List Diagnoses (1) Right distal ureteral calculus: (2) Constipation due to pain medication:
--- NOTE | 2021-09-08 08:10 | ANES.PREANE2 ---
Pre-Anesthetic Assessment Height/Weight: Height 1.75 m Weight 71.668 kg Temp Pulse Resp BP Pulse Ox 97.8 F 82 18 153/114 97 09/08/21 07:34 09/08/21 07:34 09/08/21 07:34 09/08/21 07:34 09/08/21 07:34 Preop Diagnosis: Refractory RIGHT ureteral calculus Operation Date: 09/08/21 08:45 Proposed Procedures p Cystoscopy 19283/25167-70/N20.1(Not Applicable) - Marek Sequeira MD s Retrograde Pyelogram(Right) - MD aaliyah Kay Ureteroscopy(Not Applicable) - Marek Sequeira MD s Laser Lithotripsy(Right) - Marek Sequeira MD s Ureteral Stent Placement(Right) - Marek Sequeira MD Was Beta Yoko taken within 24 hours: N/A Was Clonidine taken within 24 hours: N/A Last intake: Intake Last Liquid Date 09/07/21 Last Liquid Time 22:00 Last Solid Date 09/07/21 Last Solid Time 22:00 Last Intake: 22:00 Social No alcohol and No tobacco Exam alert, oriented x 3, clear to auscultation bilaterally and regular rate & rhythm Airway Submandibular: within normal limits Cervical ROM: within normal limits Mallampati: Class I Dentition: full History/ROS No significant complaints GI Gastroesophageal Reflux Disease (rare) Anesthetic Plan ASA status: 1 Anesthesia: Anesthesia Evaluation and General Risk of > 500 ml blood loss (7ml/kg in children): No Medications/Allergies Home Medications Medication Instructions Recorded Confirmed Last Taken Type acetaminophen 325 mg capsule 325 mg PO QID PRN 09/03/21 09/08/21 1 Day Ago History (Tylenol) ~09/07/21 ciprofloxacin HCl 500 mg tablet 500 mg PO BID 09/03/21 09/08/21 1 Day Ago History (Cipro) ~09/07/21 ibuprofen 200 mg capsule 200 mg PO Q6H PRN 09/03/21 09/08/21 3 Days Ago History ~09/05/21 oxycodone-acetaminophen 7.5 mg-325 1 tab PO Q6H PRN 5 Days #20 tab 09/03/21 09/08/21 09/08/21 04:00 Rx mg tablet (Percocet) tamsulosin 0.4 mg capsule 0.4 mg PO DAILY 09/03/21 09/08/21 09/08/21 06:00 History Allergies Allergy/AdvReac Type Severity Reaction Status Date / Time No Known Allergies Allergy Unverified 09/08/21 07:44 [facility] Anesthesia Surgical History (Updated 09/08/21 @ 08:08 by Marek Sequeira MD) H/O: vasectomy Family History Father Hypertension Denies family history of CAD (coronary artery disease) Anesthesia complication Social History Smoking and tobacco status: never smoked Alcohol intake: never Marital status: Current occupational status: employed History of recent travel: No Data Anesthesia Cardiac Studies: No Data to Display
--- NOTE | 2021-09-08 08:11 | P.OP_ITS ---
Operative Report Date of procedure: September 08, 2021 Pre-op diagnosis: Preop Diagnosis Refractory RIGHT ureteral calculus Post-op diagnosis: Refractory RIGHT ureteral calculus Right distal ureteral stricture Procedure done: 1. Cystoscopy, RIGHT: Retrograde, ureteroscopy, stone extraction, ureteral stent (6 Portuguese by 28 cm double-pigtail without string) Implants: Ureteral stent Pathology: Ureteral Stone Surgeon: Fabby Estimated blood loss: Minimal Urine output: Not measured Complications: None Brief History: Jesus Alberto is a very pleasant 36-year-old white male who about a week and a couple days ago was diagnosed with a very small right distal ureteral stone demonstrating high-grade obstruction. There was some extravasation from the calyceal fornices. No UTI. 4 days later he still had a column of contrast in the right ureter down to the stone. He was having refractory symptoms up to the morning of surgery He had failed a conservative timeframe. We reviewed the possibility that he might have a distal ureteral stricture. Discussed sometimes the difficulty in getting access in such a condition. Ultimately we plan to proceed with endoscopic treatment of the stone Procedure: After routine preoperative evaluation examination and obtaining of informed consent he was taken to the operating suite on 09/08/2021 where general anesthesia was administered without difficulty after appropriate timeout was performed, SCDs confirmed to be functioning, preoperative antibiotics administered, beta- ravi protocol confirmed. Prepped and draped in the usual sterile fashion in dorsolithotomy position paying careful attention to avoiding pressure points. 21 Portuguese cystoscope with 30 degree lens was introduced into the urethra meatus and advanced into the bladder to videoscopy. Bladder was systematically examined and found to be within normal limits. No stone was seen. An 8 Portuguese cone-tip catheter was intubated into the right ureteral orifice for right retrograde ureteropyelogram which demonstrated a very narrowed distal ureter with a filling defect consistent with a stone about 1.5 cm proximal to the ureteral orifice. The ureter proximal to the stone was dilated. A flexible tip guidewire was easily passed up the right ureter bypassing the stone. The distal ureter dilated with a 50 cm balloon. Required 6 ashlee of pressure. Balloon was deflated cystoscope removed and the wire secured to the drapes as a safety wire. 7 Portuguese offset semirigid ureteroscope was then advanced up the right ureter. There was clear evidence of a traumatic dilation consistent with stricture/narrowing. There is no through and through tear or anything more severe just evidence that as expected there was in fact a narrowed area that required dilation. The stone was encountered and flushed out of the ureter it was actually so smal l. This was a very small stone. The scope was then passed up into the proximal ureter no other stones were seen. The ureter was in great shape above the area of dilation Grasping forcep was utilized to remove the stone from the bladder. A 6 Portuguese by 28 cm double-pigtail stent was advanced over the guidewire through the cystoscope into appropriate position as confirmed via fluoroscopy and cystoscopy. The stent was confirmed to be draining. No string. The procedure was completed. He was awakened in the operating room and returned to the recovery room in stable condition. PLANS: 1. Anticipate discharge from outpatient surgery 2. We will leave the stent in for least a couple weeks to allow healing of the strictured area post dilation.
[2021-09-08] MEDS: levofloxacin-dextrose 5 % 500 MG/100 ML PREMIX 100 MG IV (08:21)
--- NOTE | 2021-09-08 14:13 | ANE.PACU2 ---
Inpatient post-anesthesia follow up: Airway intact: Yes Vital signs: Temperature 98.3 F Pulse Rate 78 Respiratory Rate 18 Blood Pressure 148/98 Pulse Oximetry 98 Oxygen Delivery Me thod Room Air Oxygen Flow Rate Fraction of Inspir ed Oxygen Hydration adequate: Yes Nausea and vomiting: No Pain level: 2 Mental status: Baseline
[2021-09-12 00:28] LABS: Stone Source RIGHT URETERAL STONE
== END 2021-09-08 10:25 | disposition home or self-care (01) ==
PROVIDERS: PCP Electrodiagnostic Medicine; Visit Provider Urology
PROC: 0TJB8ZZ Inspection of Bladder, Via Natural or Artificial Opening Endoscopic (ICD-10-PCS; CPT 52000; principal; 2021-09-08 08:45)
PROC: (CPT 74420; 2021-09-08 08:45)
PROC: 0TJ98ZZ Inspection of Ureter, Via Natural or Artificial Opening Endoscopic (ICD-10-PCS; CPT 52351; 2021-09-08 08:45)
PROC: (CPT 50605; 2021-09-08 08:45)
DX: N20.1 Calculus of ureter (principal)
CPT/HCPCS: 52356; 82365; 88300; C2625; J1100; J1956; J2250; J2405; J2704; J2710; J3010; J3490; J7030

== ENCOUNTER → 2021-09-26 11:51 | Outpatient (BNVA) | payer OTHER, SELFPAY | PROVIDERS: PCP Electrodiagnostic Medicine; Visit Provider Urology | DX: N20.9 Urinary calculus, unspecified (principal) | CPT/HCPCS: 81003 ==

== ENCOUNTER → 2021-10-23 10:09 | Outpatient (BNVA) | payer OTHER, SELFPAY | PROVIDERS: PCP Electrodiagnostic Medicine; Visit Provider Urology | DX: N13.5 Crossing vessel and stricture of ureter without hydronephrosis (principal) | CPT/HCPCS: 81003 ==

== ENCOUNTER 2022-02-03 09:52 | Outpatient (CLI) | payer OTHER, SELFPAY ==
--- NOTE | 2022-02-03 12:45 | XRR_ITS ---
PROCEDURE INFORMATION: Exam: XR Abdomen Exam date and time: 02/03/2022 10:03 AM Age: 36 years old Clinical indication: Condition or disease; Kidney or ureter condition; Stricture/kinking of ureter; Additional info: Ureteral stricture, kub @ ozh on 02/03/22 @ 12:45. Appt to follow TECHNIQUE: Imaging protocol: Radiologic exam of the abdomen. Views: Frontal supine view of the abdomen. 1 View. COMPARISON: CR XR KUB [id number] 09/03/2021 9:11 AM FINDINGS: Gastrointestinal tract: No abnormally dilated air-filled bowel loops identified. Organs: No radiographically evident renal or ureteral stones identified. Previously noted small stone in the region of the right ureterovesical junction is no longer visualized. Small calcification in the left pelvis unchanged from prior exams likely a vascular phlebolith. Bones/joints: Unremarkable. XR/XR KUB [id number] IMPRESSION: No radiographically evident renal or ureteral stones identified. Previously noted small stone in the region of the right ureterovesical junction is no longer visualized.
--- NOTE | 2022-02-03 13:59 | US_ITS ---
WS: [id number] RENAL ULTRASOUND HISTORY: URETERAL STRICTURE COMPARISON: None available. TECHNIQUE: 2-D and color Doppler imaging of the kidney submitted. Right kidney: 11.2 cm x 4.9 cm x 4.9 cm. Normal echogenicity with no hydronephrosis or mass. Left kidney: 11.0 cm x 4.8 cm x 5.4 cm. Normal echogenicity with no hydronephrosis or mass. Aorta: Normal. Urinary Bladder: Normal distention. US/US renal BI* [id number] IMPRESSION: Normal renal ultrasound.
== END 2022-02-03 09:53 | disposition home or self-care (01) ==
LOC: RAD 09:54
PROVIDERS: PCP Electrodiagnostic Medicine; Visit Provider Urology
DX: N13.5 Crossing vessel and stricture of ureter without hydronephrosis (principal)
CPT/HCPCS: 74018; 76770; 81003